=== PATIENT | female | born 1950 | race Caucasian/White ===

== ENCOUNTER → 2018-10-16 | Outpatient (CLI) | payer BC, OTHER ==
[~2018-10-16] VITALS: Ht 160 cm; Wt 72.6 kg
[~2018-10-16] MED LIST: ACCUPRIL10 MG PO; ASPIR 8181 M1 PO; ASPIRIN325 PO; EFFIENT10 MG PO; ESBRIET267 MG PO; ESBRIET801 MG PO; FISH OIL 1,001000 M2 PO; LIPITOR 20 MG T20 M1 PO; LIVALO2 MG PO; LOFIBRA160 MG PO; LOPRESSOR50 PO; OMEPRAZOLE20 M2 PO; QUINAPRIL HCL20 MG PO; REPATHA SU140 MG/1 M SUBQ; TOPROL XL25 MG PO; UNICOMPLEX M TA1 TA1 PO; VASCEPA1 GM PO; VITAMIN D1000 UNI1 PO; ZOLOFT50 MG PO
--- NOTE | ~2018-10-16 | CATHLAB ---
[facility] [place] [address] INVASIVE PROCEDURE REPORT Name: ISABELLE PACHECO Room #: REG CL [facility]#: [id number] Admission: 10/16/18 Attend Phys: Yahir Ruiz, Discharge: Date of : 54 Date of Service: 10/17/18 1508 Report #: [id number] THIS REPORT FOR: //name// APPROVED REPORT Study performed: 10/16/2018 07:36:51 Patient Details The patient is a 68 year-old female Event Personnel Yahir Ruiz Crew Leader Gluing, Sugar Corona RN RN, Jennifer Smiley Monitor, Dmitriy Cobos Scrub Procedures Performed Art Access - R femoral artery* Aman Access - R femoral vein 45041 Initial Mod Sed Same Phys/QHP Gr5y 817145 67762 Mod Sed Same Phys/QHP Ea 404288 Hemostasis w/ Mynx Hemostasis with Manual pressure Right and Left Heart Cath Lt Vent/Cors/Grafts 7881283 RLLVCORCAB Aortogram Abdominal Peripheral Angio 925520 Indication Chest pain Procedure Narrative The Right Groin^ was infiltrated with 1% Lidocaine subcutaneous anesthesia. A Right Heart Catheterization was performed with a 7 Fr. Crescent-Brock catheter and pressure were recorded. Cardiac outputs were obtained by the Thermal Dilution method. A PINNACLE 6FR Sheath #[id number] sheath was inserted into the RFA 6F^. Coronary angiography was performed using coronary diagnostic catheters. The right coronary system was accessed and visualized with a JR4 catheter. The left coronary system was accessed and visualized with a JL4 catheter. The left ventricle was accessed and visualized with a ANGLE PIG catheter. Left ventriculogram was performed in 30 degree projection. An aortogram of the abdominal aorta was performed. Hemostasis was obtained with manual pressure following sheath removal without any complications. The patient tolerated the procedure well and there were no complications associated with the procedure. CARDIAC OUTPUTS WERE INJECTED 2 TIMES WITH A 2.90 co - C.I. = 1.65 Intraoperative Conscious Sedation Fentanyl 25 mcg Versed 2 mg Fluoro Time: 4.[address] [facility] [address] [place] [address] INVASIVE PROCEDURE REPORT Name: PACHECOISABELLEMAXIMILIANO HERNANDEZ Room #: REG [facility]#: [id number] Admission: 10/16/18 Attend Phys: Yahir Ruiz, Discharge: Date of : 54 Date of Service: 10/17/18 1508 Report #: [id number] Dose: DAP 3555.10 cGycm2 405 mGy Contrast Type and Amount: Omnipaque 140 ml Hemodynamics The right atrial mean pressure is 12 mmHg. The right ventricular pressure is 41/9 mmHg. The pulmonary artery pressure is 44/6 mmHg with a mean of 24 mmHg. The mean pulmonary capillary wedge pressure is 14 mmHg. The aortic pressure is 148/68 mmHg with a mean of 98 mmHg. The left ventricular pressure is 150/10 mmHg with a mean of mmHg. The left ventricular end diastolic pressure is 25 mmHg. 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 Will follow noninvasively #3 left main mildly disease giving rise to an a circumflex which occludes at an LAD diagonal system #4 LAD diagonal small diffusely diseased 40-50% proximal and then extends to the apex. There is a very atraumatic DIETRICH partly competitively filling this vessel. The predominant flow is via the [place] system #5 [place] circumflex occluded #6 dominant right coronary artery previously placed proximal stents patent with a 50-60% stenosis proximal to this stent not flow limiting moderate disease distally and a large dominant system. #7 vein graft to OM branch is occluded. This is an interval change from the catheterization in 2016 Recommendations and plan: Continue aggressive risk factor modification. This was a small diffusely diseased OM system. On review of the old films. Minimal distribution. I suspect this graft is been occluded for some time. <ELECTRONICALLY SIGNED> By: Yahir Ruiz MD, FACC 10/17/18 1508 1508 1508 Yahir Ruiz MD, FACC /INF
[2018-10-16 07:17] VITALS: BP 156/68
[2018-10-16 07:29] LABS: HEMATOCRIT 38.4 % (37.0-47.0); HEMOGLOBIN 12.9 gm/dL (12.0-15.0); MCH 31.5 pg (26.0-34.0); MCHC 33.7 g/dL (28.0-37.0); MCV 93.4 fL (80.0-100.0); RBC 4.11 mil/uL (4.20-5.00); RDW 14.3 % (10.5-14.5); WBC 7.3 thou/uL (4.0-11.0)
[2018-10-16 07:39] LABS: CALCIUM 9.4 mg/dL (8.5-10.1); CREATININE 0.9 mg/dL (0.6-1.0); POTASSIUM 3.3 mmol/L (3.5-5.1)
== END | disposition home or self-care (01) ==
LOC: CATH 06:25
PROVIDERS: Internal Medicine Cardiovascular Disease
DX: I25.10 Atherosclerotic heart disease of native coronary artery without angina pectoris (principal); I71.4 Abdominal aortic aneurysm, without rupture; I10 Essential (primary) hypertension; I73.9 Peripheral vascular disease, unspecified; E78.5 Hyperlipidemia, unspecified; I25.2 Old myocardial infarction; J44.9 Chronic obstructive pulmonary disease, unspecified; F32.9 Major depressive disorder, single episode, unspecified; Z87.891 Personal history of nicotine dependence; Z95.1 Presence of aortocoronary bypass graft; Z82.49 Family history of ischemic heart disease and other diseases of the circulatory system; Z98.890 Other specified postprocedural states; Z88.2 Allergy status to sulfonamides; Z86.711 Personal history of pulmonary embolism; Z79.01 Long term (current) use of anticoagulants; Z88.8 Allergy status to other drugs, medicaments and biological substances; Z79.899 Other long term (current) drug therapy; Z79.82 Long term (current) use of aspirin

== ENCOUNTER → 2019-12-09 | Outpatient (CLI) | payer OTHER ==
[~2019-12-09] MED LIST changes: +OMEPRAZOLE 20 M20 M1 PO; +QUINU10 PD PO; +VITAMIN D31250 MCG PO; +XARELTO20 MG PO
== END ==
LOC: SJCVCIMAG 10:04 → SJCVC 14:49 → SJCVCIMAG 14:49
DX: I70.201 Unspecified atherosclerosis of native arteries of extremities, right leg (principal); I25.10 Atherosclerotic heart disease of native coronary artery without angina pectoris; I65.23 Occlusion and stenosis of bilateral carotid arteries; I10 Essential (primary) hypertension; E78.00 Pure hypercholesterolemia, unspecified; I73.9 Peripheral vascular disease, unspecified; J44.9 Chronic obstructive pulmonary disease, unspecified; Z95.1 Presence of aortocoronary bypass graft; Z95.820 Peripheral vascular angioplasty status with implants and grafts

== ENCOUNTER → 2019-12-15 | Outpatient (CLI) | payer OTHER ==
[~2019-12-15] VITALS: Ht 160 cm; Wt 70.4 kg
[~2019-12-15] MED LIST changes: -QUINU10 PD PO; -VITAMIN D31250 MCG PO
[2019-12-15 07:40] VITALS: BP 116/56
[2019-12-15 07:41] LABS: HEMATOCRIT 38.6 % (37.0-47.0); HEMOGLOBIN 12.7 gm/dL (12.0-15.0); MCH 32.1 pg (26.0-34.0); MCHC 32.9 g/dL (28.0-37.0); MCV 97.8 fL (80.0-100.0); RBC 3.95 mil/uL (4.20-5.00); RDW 14.7 % (10.5-14.5); WBC 10.2 thou/uL (4.0-11.0)
[2019-12-15 07:56] LABS: CALCIUM 9.1 mg/dL (8.5-10.1); CREATININE 1.1 mg/dL (0.6-1.0); POTASSIUM 3.9 mmol/L (3.5-5.1)
== END | disposition home or self-care (01) ==
LOC: CATH 06:27
PROVIDERS: Nuclear Medicine Nuclear Cardiology
DX: I70.212 Atherosclerosis of native arteries of extremities with intermittent claudication, left leg (principal); I70.1 Atherosclerosis of renal artery; K55.1 Chronic vascular disorders of intestine; I10 Essential (primary) hypertension; K21.9 Gastro-esophageal reflux disease without esophagitis; I25.10 Atherosclerotic heart disease of native coronary artery without angina pectoris; F32.9 Major depressive disorder, single episode, unspecified; Z98.890 Other specified postprocedural states; Z79.899 Other long term (current) drug therapy; Z95.1 Presence of aortocoronary bypass graft; Z90.710 Acquired absence of both cervix and uterus; Z82.49 Family history of ischemic heart disease and other diseases of the circulatory system; Z88.2 Allergy status to sulfonamides; Z88.8 Allergy status to other drugs, medicaments and biological substances

== ENCOUNTER → 2019-12-23 | Outpatient (CLI) | payer OTHER ==
[~2019-12-23] MED LIST changes: +QUINU10 PD PO; +VITAMIN D31250 MCG PO
== END ==
LOC: SJCVCIMAG 10:46
DX: I65.23 Occlusion and stenosis of bilateral carotid arteries (principal); I08.1 Rheumatic disorders of both mitral and tricuspid valves; R94.31 Abnormal electrocardiogram [ECG] [EKG]; I73.9 Peripheral vascular disease, unspecified; I25.10 Atherosclerotic heart disease of native coronary artery without angina pectoris; I10 Essential (primary) hypertension; J44.9 Chronic obstructive pulmonary disease, unspecified; E78.00 Pure hypercholesterolemia, unspecified; K21.9 Gastro-esophageal reflux disease without esophagitis; K55.1 Chronic vascular disorders of intestine; Z95.1 Presence of aortocoronary bypass graft; Z90.710 Acquired absence of both cervix and uterus; Z95.5 Presence of coronary angioplasty implant and graft; Z79.899 Other long term (current) drug therapy; Z87.891 Personal history of nicotine dependence

== ENCOUNTER 2019-12-26 11:11 | Observation (INO) | payer OTHER ==
[~2019-12-26] VITALS: Ht 160 cm; Wt 72.6 kg
[2019-12-26] VITALS (8 sets, daily range): BP systolic 115–170; BP diastolic 60–89
[~2019-12-26 11:11] MED LIST changes: -QUINU10 PD PO; -VITAMIN D31250 MCG PO
[2019-12-26] MEDS ORDERED: QUINU10 PD PO (12:14)
[2019-12-26] MEDS ORDERED: VITAMIN D31250 MCG PO (12:17)
--- NOTE | 2019-12-26 18:10 | NUR ---
PT CARE ASSUMED APPROX 1530 S/P RLE STENT PLACEMENT. DENIES PAIN AND SOA. VSS. BEDREST COMPLETED AT THIS TIME. LEFT GROIN POST CATH SITE C/D/I AND NEGATIVE FOR HEMATOMA. UP WITH STEADY GAIT. POST PROCEDURE IV INFUSION COMPLETED PER ORDERS. IV OUT, TELE BOX OFF. WILL ESCORT PT OUT TIMELY PER ORDERS.
== END 2019-12-26 18:35 | disposition home or self-care (01) ==
LOC: CATH 11:11 → 2N 15:39
PROVIDERS: ADMIT Nuclear Medicine Nuclear Cardiology
DX: I73.9 Peripheral vascular disease, unspecified (principal); I77.1 Stricture of artery

== ENCOUNTER 2020-04-19 08:46 | Inpatient (IN) | payer OTHER ==
[2020-04-19] VITALS (15 sets, daily range): BP systolic 93–196; BP diastolic 48–75
[~2020-04-19] VITALS: Ht 160 cm; Wt 68.9 kg
[~2020-04-19 08:46] MED LIST changes: -ACCUPRIL10 MG PER TUBE; -ASA81BEC PO; -INTERMEZZO3.5 MG; -OSTERA TABLET1 EAC1 PO; -PLAVIX 75 MG TA75 M1 PO; -QUINAPRIL 20 MG20 MG PO; -REPATHA PU420 MG/3.5
[2020-04-19 09:07] LABS: HEMATOCRIT 36.1 % (37.0-47.0); HEMOGLOBIN 12.1 gm/dL (12.0-15.0); MCH 32.2 pg (26.0-34.0); MCHC 33.4 g/dL (28.0-37.0); MCV 96.2 fL (80.0-100.0); RBC 3.75 mil/uL (4.20-5.00); RDW 14.9 % (10.5-14.5); WBC 9.3 thou/uL (4.0-11.0)
[2020-04-19 09:19] LABS: ALBUMIN 3.7 g/dL (3.4-5.0); CALCIUM 8.9 mg/dL (8.5-10.1); CREATININE 0.9 mg/dL (0.6-1.0); POTASSIUM 3.5 mmol/L (3.5-5.1); TOTAL BILIRUBIN 0.2 mg/dL (0.2-1.0)
[2020-04-19] MEDS ORDERED: ASA81BEC PO (09:52)
[2020-04-19] MEDS ORDERED: TOPROL XL25 MG PO (09:58)
[2020-04-19] MEDS ORDERED: INTERMEZZO3.5 MG (09:58)
[2020-04-19] MEDS ORDERED: QUINAPRIL 20 MG20 MG PO (09:59)
[2020-04-19] MEDS ORDERED: ACCUPRIL10 MG PER TUBE (10:00)
[2020-04-19] MEDS ORDERED: OSTERA TABLET1 EAC1 PO (10:00)
[2020-04-19] MEDS ORDERED: OMEPRAZOLE 20 M20 M1 PO (10:01)
--- NOTE | 2020-04-19 11:45 | EKG ---
[facility] [place] [address] ELECTROCARDIOGRAM REPORT Name: ISABELLE PACHECO Room #: PRE [facility].#: [id number] Admission: Attend Phys: Dmitriy Fulton MD Discharge: Date of : 54 Report #: [id number] THIS REPORT FOR: cc: FAM - Family physician unknown FAM - Family physician unknown Bradford Jordan MD ~ THIS REPORT FOR: //name// [facility] Test Date: 2020-04-19 Test Time: 09:05:23 Pat Name: ISABELLE PACHECO Department: Room: Gender: F Loan Supervisor: Rasheeda RODRIGUEZ : 1950 Requested By: Sarah Daugherty Order Number: [id number] MD: Bradford Jordan Measurements Intervals [place] Rate: 66 P: 23 LA: 155 QRS: 27 QRSD: 88 T: 33 QT: 425 QTc: 446 Interpretive Statements Sinus rhythm Minimal ST depression, anterolateral leads Compared to ECG 10/06/2017 09:04:31 ST (T wave) deviation now present T-wave abnormality no longer present Electronically Signed On 04-19-2020 11:43:09 CDT by Bradford Jordan [email or web address] <ELECTRONICALLY SIGNED> By: Bradford Jordan MD 04/19/20 1143 0905 4 Bradford Jordan MD /EPI
--- NOTE | 2020-04-19 17:53 | NUR ---
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 SHEATH RIGHT GROIN NOTED, VITALS STABLE. MEDICATED FOR PAIN WITH PRN MEDS. PEDAL PULSED DOPPLED AND ON THE LEFT FOOT ABLE TO DOPPLER ON AND OFF, WARM BLANKET PROVIDED FOR CRAMPING AND COMFORT. INTEGRILLIN AND tPA THROUGHT RIGHT GROIN SHEATH. ADMISSION HISTORY AND ASSESSMENT DOCUMENTED. VOIDING PER URINAL. PLAN: GO BACK FOR RE-EVAL TOMORROW.
[2020-04-20] VITALS (30 sets, daily range): BP systolic 94–145; BP diastolic 50–91
--- NOTE | 2020-04-20 06:37 | NUR ---
PATIENT ALERT AND ORIENTED X4, PAIN CONTROLLED WITH MEDICATION. ON 2L NASAL CANNULA, O2 SAT REMAINED ABOVE 90%. VOIDS PER BEDPAN. LEFT FOOT NOTED DECREASED PURPLE DISCOLORATION AND INCREASED LIGHT PINK. RIGHT GROIN SHEATH IN PLACE WITH TPA AND INTEGROLIN INFUSING. DRAINAGE NOTED TO DRESSING, NEGATIVE FOR HEMATOMA WITH FREQUENT HOURLY CHECKS. PLAN DISCUSSED WITH PATIENT, PATIENT VERBALIZED UNDERSTANDING. NO SIGN OF ACUTE DISTRESS NOTED AT THIS TIME. PATIENT PROGRESSING TOWARDS GOALS. WILL CONTINUE TO MONITOR.
--- NOTE | 2020-04-20 10:32 | NUR ---
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 noted per chart, independent. norm torres listed as contacted. will cont following as needed for dc needs.
--- NOTE | 2020-04-20 17:54 | NUR ---
BACK TO IR THIS MORNING AND STENT PLACED TO L POPLITEAL ARTERY. R GROIN SITE CLOSED WITH MYNX. NO HEMATOMA OR BLEEDING AT SITE. BEDREST OVER AT 1300. OOB TO BATHROOM WITHOUT DIFFICULTY. L DP +1, R DP +2
--- NOTE | 2020-04-20 22:13 | NUR ---
Pt progressing toward goals: left foot warm and dry with palpable pulse. Monitor sinus rhythm with occasional PAC's. VS stable. Pt was running fever at 2000 check. Encouraged oral intake and hydrocodone given for left foot pain. Eyes feel much better after liquid tears.
--- NOTE | 2020-04-20 22:45 | NUR ---
PT IS ALERT AND ORIENTED X4. ON 2L LITERS NASAL CANULA. UP TO BATHROOM WITH MINIMAL ASSISTANCE PER NURSING. LUNGS ARE COARSE TO WHEEZY. PT HAS PULMONARY FIBROSIS. HAS A MASK ON INFORMS STAFF OF HER DISEASE. ABDOMEN IS SOFT AND ROUND BOWEL SOUNDS ACTIVE X4. DRESSING TO RIGHT GROIN DRY AND INTACT. RADIAL PULSES 2 PLUS BILAT. PEDAL ON RIGHT IS 2 PLUS AND THEN 1 PLUS ON THE LEFT. LEFT HAS 2CM CIRCULAR AREA DUSKINESS BELOW GREAT TOE BUT LEFT FOOT REAMINS WARM AND PINK TO SENSATION. ARTIFICAL TEARS FOR RED, DRY EYES. WILL CONTINUE NURSING PLAN OF CARE
[2020-04-21 02:30] VITALS: BP 121/40
[2020-04-21 04:00] VITALS: BP 123/61
[2020-04-21] MEDS ORDERED: PLAVIX 75 MG TA75 M1 PO (07:29)
[2020-04-21 09:11] VITALS: BP 119/70
[2020-04-21 12:18] VITALS: BP 96/56
[2020-04-21 12:51] VITALS: BP 96/56
--- NOTE | 2020-04-21 13:00 | NUR ---
ASSUMED CARE APPROX 0700. ASSESSMENTS CHARTED AND VSS. PT ALERT AND ORIENTED X4. PT DENIES ACUTE PAIN. STILL REQUIRING 2LNC AT THIS TIME, BUT THIS IS HER BASELINE AT HOME. NO SIGNS OF RESPIRATORY DISTRESS OR DYSPNEA NOTED. DISCHARGE PACKET/INSTRUCTIONS DISCUSSED WITH PT. TELE MONITOR REMOVED FROM PT AND IV D/C'D. PT DENIES ANY QUESTIONS OR CONCERNS REGARDING DISCHARGE INFORMATION. PT ESCORTED OUT TIMELY.
[2020-04-26] MEDS ORDERED: REPATHA PU420 MG/3.5 (10:21)
[2020-04-26] MEDS ORDERED: VASCEPA1 GM PO (10:22)
[2020-04-26] MEDS ORDERED: ESBRIET801 MG PO (10:22)
== END 2020-04-21 14:20 | disposition home or self-care (01) | DRG 253 ==
LOC: CATH 08:46 → EDSTATUS 10:19 → CATH 10:24 → 2N 14:25 → ICU 14:25 → CATH 15:45 → ICU 04-20 22:23 → 2N 04-20 22:23
PROVIDERS: Nurse Practitioner Adult Health; ADMIT Nuclear Medicine Nuclear Cardiology
PROC: B4181ZZ Fluoroscopy of Bilateral Renal Arteries using Low Osmolar Contrast (ICD-10-PCS; principal; 2020-04-19)
PROC: B41D1ZZ Fluoroscopy of Aorta and Bilateral Lower Extremity Arteries using Low Osmolar Contrast (ICD-10-PCS; principal; 2020-04-19)
PROC: 3E05317 Introduction of Other Thrombolytic into Peripheral Artery, Percutaneous Approach (ICD-10-PCS; principal; 2020-04-19)
PROC: 047T3ZZ Dilation of Right Peroneal Artery, Percutaneous Approach (ICD-10-PCS; principal; 2020-04-19)
PROC: 04HJ3DZ Insertion of Intraluminal Device into Left External Iliac Artery, Percutaneous Approach (ICD-10-PCS; principal; 2020-04-19)
PROC: 04HL3DZ Insertion of Intraluminal Device into Left Femoral Artery, Percutaneous Approach (ICD-10-PCS; 2020-04-20)
PROC: 047N3ZZ Dilation of Left Popliteal Artery, Percutaneous Approach (ICD-10-PCS; 2020-04-20)
PROC: 3E05317 Introduction of Other Thrombolytic into Peripheral Artery, Percutaneous Approach (ICD-10-PCS; 2020-04-20)
DX: T82.856A Stenosis of peripheral vascular stent, initial encounter (principal); K55.1 Chronic vascular disorders of intestine; I70.202 Unspecified atherosclerosis of native arteries of extremities, left leg; I25.10 Atherosclerotic heart disease of native coronary artery without angina pectoris; I10 Essential (primary) hypertension; K21.0 Gastro-esophageal reflux disease with esophagitis; F32.9 Major depressive disorder, single episode, unspecified; E78.00 Pure hypercholesterolemia, unspecified; J44.9 Chronic obstructive pulmonary disease, unspecified; J84.10 Pulmonary fibrosis, unspecified; Y83.8 Other surgical procedures as the cause of abnormal reaction of the patient, or of later complication, without mention of misadventure at the time of the procedure; Z88.2 Allergy status to sulfonamides; Z95.1 Presence of aortocoronary bypass graft; Z88.8 Allergy status to other drugs, medicaments and biological substances; Z79.01 Long term (current) use of anticoagulants; Z79.82 Long term (current) use of aspirin; Z90.710 Acquired absence of both cervix and uterus; Z87.891 Personal history of nicotine dependence; Y92.89 Other specified places as the place of occurrence of the external cause
CPT/HCPCS: 10078; 10081; 10203

== ENCOUNTER → 2020-04-19 | Outpatient (CLI) | payer OTHER ==
[~2020-04-19] MED LIST changes: +ACCUPRIL10 MG PER TUBE; +ASA81BEC PO; +INTERMEZZO3.5 MG; +OSTERA TABLET1 EAC1 PO; +PLAVIX 75 MG TA75 M1 PO; +QUINAPRIL 20 MG20 MG PO; +QUINU10 PD PO; +REPATHA PU420 MG/3.5; +VITAMIN D31250 MCG PO
== END ==
LOC: SJCVCIMAG 07:22
PROVIDERS: ATTEND Nuclear Medicine Nuclear Cardiology
DX: I70.202 Unspecified atherosclerosis of native arteries of extremities, left leg (principal); Z87.891 Personal history of nicotine dependence

== ENCOUNTER → 2020-04-26 | Outpatient (CLI) | payer OTHER ==
[2020-04-26] VITALS (9 sets, daily range): BP systolic 112–169; BP diastolic 50–78
[~2020-04-26] VITALS: Ht 160 cm; Wt 68.9 kg
[~2020-04-26] MED LIST changes: +ACCUPRIL10 MG PER TUBE; +ASA81BEC PO; +INTERMEZZO3.5 MG; +OSTERA TABLET1 EAC1 PO; +PLAVIX 75 MG TA75 M1 PO; +QUINAPRIL 20 MG20 MG PO; +REPATHA PU420 MG/3.5
== END | disposition home or self-care (01) ==
LOC: CATH 07:49
PROVIDERS: ATTEND Nuclear Medicine Nuclear Cardiology
DX: I70.213 Atherosclerosis of native arteries of extremities with intermittent claudication, bilateral legs (principal); I10 Essential (primary) hypertension; I25.10 Atherosclerotic heart disease of native coronary artery without angina pectoris; F32.9 Major depressive disorder, single episode, unspecified; K21.9 Gastro-esophageal reflux disease without esophagitis; Z98.890 Other specified postprocedural states; Z90.710 Acquired absence of both cervix and uterus; Z95.1 Presence of aortocoronary bypass graft; Z79.899 Other long term (current) drug therapy; Z79.82 Long term (current) use of aspirin; Z87.891 Personal history of nicotine dependence; Z82.49 Family history of ischemic heart disease and other diseases of the circulatory system

== ENCOUNTER → 2020-05-25 | Outpatient (CLI) | payer OTHER | LOC: SJCVCIMAG 10:16 | PROVIDERS: ATTEND Nuclear Medicine Nuclear Cardiology | DX: I70.203 Unspecified atherosclerosis of native arteries of extremities, bilateral legs (principal); I10 Essential (primary) hypertension; K55.1 Chronic vascular disorders of intestine; J44.9 Chronic obstructive pulmonary disease, unspecified; E78.00 Pure hypercholesterolemia, unspecified; K21.9 Gastro-esophageal reflux disease without esophagitis; I25.810 Atherosclerosis of coronary artery bypass graft(s) without angina pectoris; Z79.899 Other long term (current) drug therapy; Z95.820 Peripheral vascular angioplasty status with implants and grafts; Z95.1 Presence of aortocoronary bypass graft; Z82.49 Family history of ischemic heart disease and other diseases of the circulatory system; Z87.891 Personal history of nicotine dependence; Z79.82 Long term (current) use of aspirin ==

== ENCOUNTER → 2020-06-25 | Outpatient (CLI) | payer OTHER | LOC: SJCVC 14:00 | PROVIDERS: ATTEND Internal Medicine Cardiovascular Disease | DX: I25.10 Atherosclerotic heart disease of native coronary artery without angina pectoris (principal); I10 Essential (primary) hypertension; I73.9 Peripheral vascular disease, unspecified; E78.00 Pure hypercholesterolemia, unspecified; E78.1 Pure hyperglyceridemia; I65.23 Occlusion and stenosis of bilateral carotid arteries; K55.1 Chronic vascular disorders of intestine; J44.9 Chronic obstructive pulmonary disease, unspecified ==

== ENCOUNTER → 2020-09-07 | Outpatient (CLI) | payer OTHER | LOC: SJCVCIMAG 09:07 | PROVIDERS: ATTEND Nuclear Medicine Nuclear Cardiology | DX: I08.8 Other rheumatic multiple valve diseases (principal); I49.1 Atrial premature depolarization; I70.202 Unspecified atherosclerosis of native arteries of extremities, left leg; I11.9 Hypertensive heart disease without heart failure; K55.1 Chronic vascular disorders of intestine; I77.9 Disorder of arteries and arterioles, unspecified; I25.10 Atherosclerotic heart disease of native coronary artery without angina pectoris; J44.9 Chronic obstructive pulmonary disease, unspecified; Z95.1 Presence of aortocoronary bypass graft; Z95.828 Presence of other vascular implants and grafts; Z98.890 Other specified postprocedural states; Z87.891 Personal history of nicotine dependence ==

== ENCOUNTER → 2020-11-24 | Outpatient (CLI) | payer OTHER | LOC: SJCVCIMAG 14:35 | PROVIDERS: ATTEND Internal Medicine Cardiovascular Disease | DX: I08.3 Combined rheumatic disorders of mitral, aortic and tricuspid valves (principal); R94.31 Abnormal electrocardiogram [ECG] [EKG]; I49.1 Atrial premature depolarization; I25.10 Atherosclerotic heart disease of native coronary artery without angina pectoris; I11.0 Hypertensive heart disease with heart failure; I50.9 Heart failure, unspecified; K55.1 Chronic vascular disorders of intestine; J44.9 Chronic obstructive pulmonary disease, unspecified; I77.9 Disorder of arteries and arterioles, unspecified; I73.9 Peripheral vascular disease, unspecified; D50.9 Iron deficiency anemia, unspecified; E78.00 Pure hypercholesterolemia, unspecified; D68.59 Other primary thrombophilia; K21.9 Gastro-esophageal reflux disease without esophagitis; Z78.9 Other specified health status; Z95.1 Presence of aortocoronary bypass graft; Z79.82 Long term (current) use of aspirin; Z79.899 Other long term (current) drug therapy; Z87.891 Personal history of nicotine dependence ==

== ENCOUNTER 2020-12-21 00:05 | Inpatient (IN) | payer OTHER ==
[~2020-12-21] VITALS: Ht 160 cm; Wt 64.0 kg
[2020-12-21] VITALS (30 sets, daily range): BP systolic 96–169; BP diastolic 45–81
[2020-12-21] MEDS ORDERED: TOPROL XL25 MG PO (00:22)
[2020-12-21] MEDS ORDERED: ESBRIET801 MG PO (00:24)
[2020-12-21] MEDS ORDERED: VASCEPA1 GM PO (00:25)
[2020-12-21] MEDS ORDERED: VITAMIN D310 MC1 PO ×2 (00:27)
[2020-12-21] MEDS ORDERED: REPATHA SY140 MG/1 M SUBQ ×2 (00:28)
[2020-12-21 00:34] LABS: ABSOLUTE NEUTROPHILS 7.7 thou/uL (1.4-8.2); BASOPHILS 0.3 % (0.0-2.0); EOSINOPHILS 1.5 % (0.0-3.0); HEMATOCRIT 30.4 % (37.0-47.0); HEMOGLOBIN 9.4 gm/dL (12.0-15.0); LYMPHOCYTES 17.7 % (24.0-44.0); MCH 25.9 pg (26.0-34.0); MCV 83.5 fL (80.0-100.0); MONOCYTES 4.9 % (1.0-8.0); PLATELET COUNT 424 thou/uL (150-400); POLYS 75.6 % (36.0-66.0); RBC 3.64 mil/uL (4.20-5.00); RDW 19.6 % (10.5-14.5); WBC 10.2 thou/uL (4.0-11.0)
[2020-12-21 00:35] LABS: CALCIUM 9.1 mg/dL (8.5-10.1); CREATININE 1.3 mg/dL (0.6-1.0); POTASSIUM 3.7 mmol/L (3.5-5.1)
[2020-12-21 00:37] LABS: INR 1.4; PROTIME 13.9 Seconds (9.3-11.4)
[2020-12-21 00:41] LABS: ALBUMIN 4.1 g/dL (3.4-5.0); TOTAL BILIRUBIN 0.3 mg/dL (0.2-1.0); TOTAL PROTEIN 8.3 g/dL (6.4-8.2)
--- NOTE | 2020-12-21 04:10 | NUR ---
PT NEW ADMIT FROM ED FOR LLE PAIN. PT ALERT AND ORIENTED. O ARRIVAL, PT WAS RATING PAIN AT 10/10. MORPHINE PRN GIVEN. PT WAS STARTED ON HEPARIN DRIP FOR DVT. KEPT NPO FOR IR CONSULT THIS MORNING. ADMISSION COMPLETED. CONSENT FORMS SIGNED. DENIES CHEST PAIN, NAUSEA, OR VOMITING. SR ON THE MONITOR. WILL CONTINUE TO MONITOR
--- NOTE | 2020-12-21 15:00 | NUR ---
PT TRANSFERRED FROM IR TO ICU AT 1330 ACCOMPANIED BY NURSING STAFF. PT ALERT AND ORIENTED X4. PT HAS ARTERIAL SHEATH AT THE RIGHT GROIN SITE WITH TWO PORTS FOR INTEGRILIN AT 0.962MCH/KG/MIN AND ALTEPLASE AT 25ML/HR. PT RIGHT GROIN SITE LOOKS CLEAN/DRY/INTACT ON ARRIVAL. NO HEMATOMA. PULSES ARE WEAK BUT PALPABLE AT BOTH LOWER EXTREMITIES. NO COMPLAIN OF PAIN OR NUMBNESS.PT ON 2L NC. PT WEARS 2L NC AT HOME.CONTINUE TO MONITOR.
--- NOTE | 2020-12-21 17:47 | CATHLAB ---
[facility] [place] [address] INVASIVE PROCEDURE REPORT Name: ISABELLE PACHECO Room #: 240-P ADM IN M.R.#: [id number] Admission: 12/21/20 Attend Phys: Poncho Coy MD Discharge: Date of : 54 Report #: [id number] THIS REPORT FOR: cc: MARIAELENA YING MD Physician not on staff Yahir Ruiz MD [facility] ~ APPROVED REPORT Study performed: 12/21/2020 11:09:21 Patient Details Patient Status: In-Patient Room #: The patient is a 70 year-old female Event Personnel Dmitriy Fulton Interventional Radiologist, Yahir Ruiz Lay Health Advocate, Kai Krishna RTR Scrub, Mouna Sarabia RTR Monitor, Delmi Delgado RN RN, Shameka Silva RTR Tire Maker, Valerio Parra RTR Monitor, Angela Hall RTR, MEDICAL SERVICES MANAGER Tire Maker Procedures Performed Art Access - R femoral artery* Left Heart Cath Coronaries, Bypass Grafts [id number] LHCCORCABG SORAYA Place w/wo Plasty Single RCA 995930 61096 Initial Mod Sed Same Phys/QHP Gr5y 108867 33501 Mod Sed Same Phys/QHP Ea 902598 Procedure Narrative The was infiltrated with 1% Lidocaine subcutaneous anesthesia. A SHEATH BRITE-TIP 6F X 11CM ([id number]) sheath was inserted into the RFA^. Coronary angiography was performed using coronary diagnostic catheters. The right coronary system was accessed and visualized with a JR4 catheter. The left coronary system was accessed and visualized with a JL4 catheter. The left ventricle was accessed and visualized with a PIGTAIL catheter. Left ventriculogram was performed in 30 degree projection. The patient tolerated the procedure well and there were no complications associated with the procedure. Intraoperative Conscious Sedation Sedation start time: 11:35 Case end Time: 13:07 Fentanyl 200 mcg Versed 2 mg Sedation time and totals and contrast totals are a combination of a heart cath procedure and a runoff procedure. [facility] [address] [place] [address] INVASIVE PROCEDURE REPORT Name: ISABELLE PACHECO Room #: 240-P [facility] IN .R.#: [id number] Admission: 12/21/20 Attend Phys: Poncho Coy MD Discharge: Date of : 54 Report #: [id number] Fluoro Time: 13.24 minutes Dose: DAP 15252.80 cGycm2 1064 mGy Contrast Type and Amount: Visipaque 228 ml Hemodynamics The aortic pressure is 121/50 mmHg with a mean of 78 mmHg. The left ventricular pressure is 121/0 mmHg with a mean of mmHg. The left ventricular end diastolic pressure is 19 mmHg. PCI Technique Lesion Percutaneous coronary intervention was performed on the proximal right coronary artery. A LAUNCHER 6FR JR 4 #[id number] Guide Catheter was used to engage the ostium. A Luge Wire .014 x 182CM #[id number] Interventional Guidewire was used to cross the lesion. STENT DEPLOYMENT A drug-eluting stent RESOLUTE RAISA OTW 4.0 X 12 #[id number] was inserted and inflated up to 12.00atm for 44seconds. Additional Inflation: 16.00atm for 21seconds. Conclusion #1. Successful PTCA stent of a high-grade proximal dominant RCA lesion 80 to 90% to 0% with placement of a 4.0 x 12 resolute Hosmer stent postdilated to 4.2 mm MERNA grade III flow. This stent extended into a previously placed stent that was widely patent. Dominant vessel. #2 mild left main disease giving rise to LAD and circumflex. #3 the LAD is moderately diseased and occludes in the mid vessel. It is filled via DIETRICH graft which is somewhat small but brisk flow and widely patent. The proximal diagonal system is filled via the [place] system. #4 DIETRICH to LAD is intact some competitive filling of the distal half of this LAD it is moderately attenuated but brisk flow is noted through this DIETRICH so still a functioning graft. In filling the distal half of the LAD briskly. #5 circumflex OM is small nondominant were occluded was not never a significant distribution. #6 SVG to OM is occluded #7 normal left ventricular size and systolic function EF 60%. Recommendations and plan: Continue aggressive risk factor modification. Dual antiplatelet therapy initiated. Patient also undergoing thrombolysis for SFA occlusion. See Dr. Fulton's [address] [address] INVASIVE PROCEDURE REPORT Name: ISABELLE PACHECO Room #: 240-P [facility] IN M.R.#: [id number] Admission: 12/21/20 Attend Phys: Poncho Coy MD Discharge: Date of : 54 Report #: [id number] dictation. This is a subacute occlusion. With a symptomatic left foot <ELECTRONICALLY SIGNED> By: Yahir Ruiz MD, FACC 12/21/201746 46 46 Yahir Ruiz MD, FACC /INF
[2020-12-22] VITALS (53 sets, daily range): BP systolic 72–171; BP diastolic 38–96
--- NOTE | 2020-12-22 00:29 | NUR ---
PT ON BEDREST S/P CARDIAC MARU AND ANGIOGRAM.REMAINS ON TPA AND INTERGLLIN INFUSION.RIGHT GROIN W/O HEMATOMA OR ACTIVE BLEEDING.A/OX4.DENIES PAIN.PT TACHYCARDIAC WITH PERIODS OF HR BOUNCING IN 120S AND 130S BPM ACCOMPANIED BY SHORTNESS OF BREATH WHEN HR IS IN 130S.ON MONITOR SINUS TACHYCARDIA W/PVCS.PT DENIES CHEST PAIN OR ANY OTHER DISTRESS.ON O2 AT 2LITERS PNC,SATS ADEQUATE.SBP RANGING BTWN 140S TO I60S.VOIDING ADEQUATELY VIA BEDPAN.DR MANSFIELD NOTIFIED AND UPDATED ON PT'S STATUS.INSTRUCTED TO CONTINUE TO MONITOR.NO OTHER CONCERNS VOICED OR NOTED.
[2020-12-22 05:43] LABS: ANION GAP 9 mmol/L (7-16); BUN 15 mg/dL (7-18); CALCIUM 8.8 mg/dL (8.5-10.1); CHLORIDE 105 mmol/L (98-107); CO2 26 mmol/L (21-32); CREATININE 1.2 mg/dL (0.6-1.0); GLUCOSE 124 mg/dL (74-106); SODIUM 140 mmol/L (136-145); TROPONIN-I <0.06 ng/mL (<0.06)
[2020-12-22 07:10] LABS: HEMATOCRIT 25.1 % (37.0-47.0); MCH 26.1 pg (26.0-34.0); MCHC 31.7 g/dL (28.0-37.0); MCV 82.2 fL (80.0-100.0); RBC 3.05 mil/uL (4.20-5.00); RDW 19.4 % (10.5-14.5); WBC 7.8 thou/uL (4.0-11.0)
--- NOTE | 2020-12-22 07:20 | NUR ---
PT RESTING IN NO ACUTE DISTRESS.S/p CARDIAC MARU.REMAINS ON BEDREST.TPA AND INTERGLIN DRIP INFUSING.ON ASSESSMENT TO RIGHT GROIN THIS AM NOTED DRESSING WET WITH BLOODY DRAINAGE AND A HEMATOMA NOTED.PRESSURE APPLIED,HEMATOMA NOW SOFT.NOTED RIGHT ARM BRUISING AND PETECHIE.BLOOD PRESSURE CUFF REMOVED.PT ABLE TO MOVE THE EXTREMITY W/O DIFFICULTIES.DENIES PAIN.PERIPHERAL PULSES PRESENT + radial bilaterally.pedal pulse,2+ to right and 1+ to left.bilateral feet warm to to touch and cool to touch to toes.pt medicated with pain meds x1 forthe c/o leg pain with relief.no numbness or tingling or color change to lower extremities.pt denies any other concerns.poc is to go to ir procedure today.
--- NOTE | 2020-12-22 07:27 | EKG ---
[place] [address] [facility] [place] [address] ELECTROCARDIOGRAM REPORT Name: ISABELLE PACHECO Room #: 240-P ADM IN M.R.#: [id number] Admission: 12/21/20 Attend Phys: Candice Romo Discharge: Date of : 54 Report #: [id number] [facility] Test Date: 2020-12-22 Test Time: 07:11:24 Pat Name: ISABELLE PACHECO Department: Room: 240 P Gender: F Tow Driver: JAKOB : 1950 Requested By: Sarah Daugherty Order Number: [id number] MD: Blas Rivera Measurements Intervals [place] Rate: 90 P: 31 DE: 136 QRS: 30 QRSD: 91 T: 61 QT: 371 QTc: 454 Interpretive Statements Sinus rhythm Atrial premature complexes Probable left ventricular hypertrophy Compared to ECG 04/19/2020 09:05:23 Atrial premature complex(es) now present ST (T wave) deviation no longer present Electronically Signed On 12-22-2020 7:27:42 OBSTETRICS TEACHER by Blas Rivera [email or web address] <ELECTRONICALLY SIGNED> By: Blas Rivera MD, [facility] 12/22/20726 0 0 Blas Rivera MD, [facility] /EPI
[2020-12-22 08:08] LABS: HEMATOCRIT 25.7 % (37.0-47.0); MCH 25.6 pg (26.0-34.0); WBC 7.8 thou/uL (4.0-11.0)
[2020-12-22 08:09] LABS: HEMOGLOBIN 7.9 gm/dL (12.0-15.0); MCHC 30.9 g/dL (28.0-37.0); RBC 3.1 mil/uL (4.20-5.00); RDW 19.7 % (10.5-14.5)
[2020-12-22 08:35] LABS: CALCIUM 8.8 mg/dL (8.5-10.1); CREATININE 1.3 mg/dL (0.6-1.0); POTASSIUM 3.9 mmol/L (3.5-5.1)
[2020-12-22 12:42] LABS: HEMOGLOBIN 6.7 gm/dL (12.0-15.0); WBC 7.2 thou/uL (4.0-11.0)
[2020-12-22 12:45] LABS: ABSOLUTE RETIC COUNT 0.0423 10^6/uL; HEMATOCRIT 21.2 % (37.0-47.0); MCHC 31.6 g/dL (28.0-37.0); MCV 82.3 fL (80.0-100.0); OBSERVED RETIC COUNT 1.64 % (0.6-2.6); RBC 2.58 mil/uL (4.20-5.00); RDW 19.2 % (10.5-14.5)
[2020-12-22 12:53] LABS: % SATURATION 80 % (20-39); IRON 252 ug/dL (50-170); TIBC 315 ug/dL (250-450)
[2020-12-22 12:54] LABS: INR 1.4; PROTIME 14.7 Seconds (9.3-11.4)
[2020-12-22 12:58] LABS: CALCIUM 8.4 mg/dL (8.5-10.1); CREATININE 1.1 mg/dL (0.6-1.0); POTASSIUM 3.5 mmol/L (3.5-5.1); TOTAL BILIRUBIN 0.4 mg/dL (0.2-1.0); TOTAL PROTEIN 6.2 g/dL (6.4-8.2)
[2020-12-22 13:22] LABS: FOLIC ACID 19.2 ng/mL (8.6-58.9)
--- NOTE | 2020-12-22 15:23 | NUR ---
PT IN AFIB RVR. DR. DINERO NOTIFIED. ONE TIME 5MG IV LOPRESSOR, AMIO BOLUS AND DRIP PROTOCOL ORDERED PER DR DINERO PT HYPOTENSIVE 90-107/43-[address] DINERO OF HYPOTENSION, RN TO STILL GIVE MEDS ORDERED BY DR DINERO
--- NOTE | 2020-12-22 16:15 | NUR ---
PT ADMITTED RELATED TO CLAUDICATION OF L LOWER EXTREMITY. CM REVIEWED CHART AND SPOKE WITH CARE TEAM. CM CALLED AND SPOKE WITH PT'S SON KOFI PACHECO THIS DAY. HE INDICATED THAT HIS MOM RESIDES IN A HOUSE ALONE. HE INDICATED 3 STEPS TO ENTER AND NO STEPS INSIDE. 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 PT'S LISTED PCP IS DR. ROCIO YING. CARDIOLOGY AND HEMETOLOGY CONSULTED AND FOLLOWING PT. PT HAD ANGIOGRAM WITH INTERVENTION DONE THIS DAY. CM TO FOLLOW INDICATED WITH DC PLANNING.
--- NOTE | 2020-12-22 19:12 | NUR ---
PT PROGRESSING TOWARDS GOALS. CATH AND ANGIO SUCCESSFULL. NEW AFIB RVR CONTROLED WITH AMIODARONE DRIP
[2020-12-22 21:06] LABS: HEMATOLOGY COMMENTS Note: (()); HEMOGLOBIN 6.7 g/dL (11.1-15.9)
[2020-12-23] VITALS (74 sets, daily range): BP systolic 80–192; BP diastolic 28–117
[2020-12-23 04:54] LABS: CALCIUM 8.6 mg/dL (8.5-10.1); CREATININE 1.5 mg/dL (0.6-1.0); POTASSIUM 3.7 mmol/L (3.5-5.1)
[2020-12-23 05:34] LABS: HEMATOCRIT 30.6 % (37.0-47.0); MCH 27.2 pg (26.0-34.0); MCHC 32.8 g/dL (28.0-37.0); MCV 82.7 fL (80.0-100.0); RBC 3.7 mil/uL (4.20-5.00); RDW 17.5 % (10.5-14.5); WBC 10.7 thou/uL (4.0-11.0)
[2020-12-23 05:53] LABS: HEMOGLOBIN 10.1 gm/dL (12.0-15.0)
--- NOTE | 2020-12-23 06:34 | NUR ---
PATIENT CONVERTED BACK TO SINUS RHYTHM AROUND 0330 THIS AM. COMPLAINTS OF N/V. PROJECTILE VOMITING X1 AT 0608. ASSISTED BACK TO BED FROM BEDSIDE COMMODE. ZOFRAN 4MG IVP GIVEN. PATIENT STATES FEELING BETTER. SBP 140-170s OVER NIGHT. BETTER WHEN SLEEPING. RIGHT GROIN DRESSING SITE INTACT. NO HEMATOMA, NO BLEEDING, PT DENIES PAIN.
--- NOTE | 2020-12-23 19:12 | NUR ---
PATIENT STARTED ON ARGATRABAN GTT AND PROTONIX GTT. PATIENT IN CONTROLLED AFIB WITH SOME NSR PERIODICALLY.
[2020-12-24] VITALS (66 sets, daily range): BP systolic 85–145; BP diastolic 31–82
[2020-12-24 05:31] LABS: HEMATOCRIT 27.2 % (37.0-47.0); HEMOGLOBIN 8.8 gm/dL (12.0-15.0); MCH 27.1 pg (26.0-34.0); MCHC 32.5 g/dL (28.0-37.0); MCV 83.4 fL (80.0-100.0); RBC 3.27 mil/uL (4.20-5.00); RDW 17.6 % (10.5-14.5); WBC 10.3 thou/uL (4.0-11.0)
--- NOTE | 2020-12-24 07:32 | HC ---
[facility] [place] [address] CONSULTATION Name: ISABELLE PACHECO Room #: 240-P ADM IN M.R.#: [id number] Admission: 12/21/20 Attend Phys: Candice Romo Discharge: Date of : 54 Report #: [id number] THIS REPORT FOR: cc: MARIAELENA YING MD Physician not on staff Moises Parker MD ~ CONSULT REQUESTED BY: Dr. Yahir Ruiz REASON FOR CONSULTATION: Thrombocytopenia. HISTORY OF PRESENT ILLNESS: The patient is a 70-year-old female who was admitted for a cold foot and ended up having a thrombectomy and also a stent placement. Her platelets prior to the procedure about 400,000, the day afterwards were down to 16,000. The patient had been receiving Integrilin and heparin for about a day and a half to 2 days at that time. She had both agents before without difficulties. The patient reports no past history of blood disorder. She does have a history of I think 2 previous episodes of arterial clot formation with removal. At this time, she does have a headache. She denies fevers or chills. Did have some nausea earlier, feels better after emesis. No blood in urine or stool. No black tarry stool. She has not been on iron before. No dysuria. Does have some shortness of air related to her pulmonary fibrosis. 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 FAMILY HISTORY: No one with blood disorders that she reports. Remainder of family history appears unremarkable. SOCIAL HISTORY: Retired, lives at home. Has a black cat that she calls little big man. No alcohol recently. CURRENT MEDICATIONS: Include sucralfate that I added this morning, amiodarone 400 mg daily, amlodipine 5 daily, metoprolol 50 daily, sertraline 50 daily, famotidine 10 b.i.d., atorvastatin 40 at bedtime, albuterol respiratory therapy, Zofran p.r.n., iron sucrose to begin today, Zofran p.r.n., hydrocodone p.r.n., clopidogrel I believe it is currently on hold. LABORATORY DATA: As mentioned above was notable for recent creatinine of 1.5, [facility] [address] [place] [address] CONSULTATION Name: ISABELLE PACHECO Room #: 240-P [facility] IN M.R.#: [id number] Admission: 12/21/20 Attend Phys: Candice Romo Discharge: Date of : 54 Report #: [id number] which is near baseline for her. Liver functions normal. Iron recently was 252, percent saturation 80%, TIBC 315. At [facility], they had recently been consistent with iron deficiency. INR here on admission was 1.4, the protime of 13.9. White count on admission 10.2, hemoglobin on admission 9.4, MCV on admission 83.5, platelets on admission had been 424. She underwent the procedure on 12/21 and then the morning of 12/22, her platelets were 20,000 and repeat 16,000. After platelet transfusion yesterday, they were up to 80,000, then this morning they are 67,000. Absolute retic count inappropriately low at 0.0423. Note that immature platelet fraction is pending. Heparin antibody is pending. Ferritin was 87. Folate 19.2. Vitamin B12 299. COVID negative. Recent imaging had the angiograms for thrombolysis. PHYSICAL EXAMINATION: VITAL SIGNS: The patient's height is described as 5 feet 3 inches, 160 cm; weight 143.2 pounds or 64.95 kilograms. Recent blood pressure 182/77, pulse 80, respirations 19, temperature oral 99.0. MOOD: The patient is alert and anxious and conversant. NEUROLOGIC: Speech and thought pattern appear to be normal. She is moving upper extremities. Lower extremity is not moving much, just because she has not been watching her, though she can. LYMPHATICS: No enlarged lymph nodes in the supraclavicular, cervical, axillary or inguinal region. HEENT: Oropharynx without petechiae, leukoplakia, or ulcerations. HEART: ____ regular rate, ____ understand she is in atrial fibrillation. LUNGS: Symmetric, unlabored without rhonchi or wheezes. ABDOMEN: Slightly obese. No masses. Mildly discomfort in the epigastric region, lower abdomen and suprapubic area, nonspecific changes. EXTREMITIES: Without clubbing or cyanosis. SKIN: Notable for several small ecchymoses in different locations and also related to lab draw. ASSESSMENT AND PLAN: 1. Thrombocytopenia. Given the sudden drop, would wonder about Integrilin. Platelets are now improved after transfusion with slight drop. The patient unfortunately is a very delicate balance risk of bleeding with her iron deficiency from unknown source though not acute or a sudden drop versus recurrence of her arterial clot versus clotting off of her cardiac stent. Discussed with cardiac nurse practitioner and also nurse with the patient. We think it might be the safest bet to go with argatroban without a bolus and watch her platelets and wait for the heparin-induced thrombocytopenia antibody. It is possible this is heparin-induced thrombocytopenia, but does not seem real likely. I have also asked the PharmD to see if they can check to see whether future use of Integrilin is now contraindicated or there are other agents we could use. The patient had been off aspirin. So, the question is also raised did her clot occur because of being off the aspirin or she failed Xarelto, we [facility] [address] [place] [address] CONSULTATION Name: TARAISABELLEMAXIMILIANO BHATTE Room #: 240-P ADM IN M.R.#: [id number] Admission: 12/21/20 Attend Phys: Candice Romo Discharge: Date of : 54 Report #: [id number] need to consider something like Coumadin or another agent that can be dose adjusted. We might consider Lovenox. If she does not have heparin-induced thrombocytopenia, we could follow anti-Xa. For now, we will serially watch the platelet counts and watch for bleeding. 2. Anemia. At , the patient had labs more consistent with iron deficiency. I think the labs here are probably abnormal related to acute events. We will arrange for IV iron. We will at some point need to consider the endoscopies as mentioned above. 3. Gastroesophageal reflux disease. The patient's symptoms are improved with use of Tums at home and maybe occur a little bit worse after eating half an hour afterwards. We will add Carafate to her Pepcid 10 b.i.d. ____ renal function, it may be best not to increase the Pepcid though I would defer to pharmacy and GI. 4. For as mentioned above arterial clot with peripheral arterial disease times multiple times, will be on argatroban, we will discuss that. 5. Chronic obstructive pulmonary disease and idiopathic pulmonary fibrosis. Continues inhalers per others. 6. Chronic congestive heart failure with left ventricular ejection fraction of 55% per others. 7. Gastroesophageal reflux disease as mentioned above, on Pepcid. We will add Carafate. Consider upper and possible lower endoscopies to look for source of iron loss in the future, so this may be difficult with the multiple medications the patient seems to need to be on for both her peripheral arterial and her coronary artery disease. 8. Hypertension, meds per others. 9. Hyperlipidemia, meds per others. 10. Atrial fibrillation, rate controlled, meds per others. 11. Depression, meds per others. We will follow with you. <ELECTRONICALLY SIGNED> By: Moises Parker MD 12/24/20 [id number] Moises Parker MD /nt
--- NOTE | 2020-12-24 15:16 | NUR ---
chart review. she starting iv iron, she able to make her needs know. she is on o2 2l/nc. going to start warfarin. no anticipate dc through weekend. possible will be ready for dc on sunday. dcp home. will cont following as needed for dc needs.
--- NOTE | 2020-12-24 18:32 | NUR ---
AMIOADRONE GTT INITIATED THIS AM. PATIENT UP TO CHAIR.
--- NOTE | 2020-12-24 22:21 | NUR ---
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
[2020-12-25] VITALS (19 sets, daily range): BP systolic 116–150; BP diastolic 46–95
[2020-12-25 04:18] LABS: APTT 58.7 Seconds (24.5-32.8); INR 1.8; PROTIME 18.5 Seconds (9.3-11.4)
[2020-12-25 08:16] LABS: HEMATOCRIT 26.6 % (37.0-47.0); HEMOGLOBIN 8.5 gm/dL (12.0-15.0); MCH 27.3 pg (26.0-34.0); MCV 85.2 fL (80.0-100.0); RBC 3.12 mil/uL (4.20-5.00); RDW 18.4 % (10.5-14.5); WBC 10.3 thou/uL (4.0-11.0)
[2020-12-25 08:20] LABS: CALCIUM 8.2 mg/dL (8.5-10.1); CREATININE 1.5 mg/dL (0.6-1.0); POTASSIUM 3.3 mmol/L (3.5-5.1)
--- NOTE | 2020-12-25 10:14 | NUR ---
DR. DINERO ROUNDED ON PT AND STATED PT WILL NEED TO REMAIN IN ICU WHILE ON AGATRABAN. PT STARTED ON COUMADIN YESTERDAY. CARDIOLOGY AND HEMATOLOGY WILL COORDINATE HOW LONG PT WILL NEED TO BE ON BOTH AGATRABAN AND COUMADIN.
--- NOTE | 2020-12-25 18:32 | NUR ---
PT REMAINS THIS SHIFT ON 2L NC WHICH IS HER BASELINE AT HOME, O2 SATS 94-97%. PT IS COUGHING THICK AMOUNTS OF BLOOD TINGED SPUTUM WHICH SHE STATES IS ALSO HER BASELINE DUE TO HER IDOPATHIC PULMONARY FIBROSIS. PT IS TRANSFERRING TO BEDSIDE COMMODE WITH ONE ASSIST DUE TO CORDS AND LINES BUT IS STEADY ON FEET. R GROIN REMAINS SOFT WITH NO HEMATOMA PRESENT, NO DRAINAGE AT SITE AFTER DRESSING WAS CHANGED THIS AM.
[2020-12-26] VITALS (10 sets, daily range): BP systolic 121–151; BP diastolic 61–82
[2020-12-26 08:27] LABS: APTT 65.3 Seconds (24.5-32.8); INR 4.1; PROTIME 42.2 Seconds (9.3-11.4)
[2020-12-26 10:15] LABS: ALBUMIN 2.9 g/dL (3.4-5.0); CALCIUM 8.5 mg/dL (8.5-10.1); CREATININE 1.3 mg/dL (0.6-1.0); PHOSPHORUS 3.5 mg/dL (2.6-4.7); POTASSIUM 3.4 mmol/L (3.5-5.1)
[2020-12-26 10:50] LABS: HEMATOCRIT 28.4 % (37.0-47.0); MCHC 31.7 g/dL (28.0-37.0); MCV 85.1 fL (80.0-100.0); RBC 3.34 mil/uL (4.20-5.00); RDW 18.4 % (10.5-14.5); WBC 11.5 thou/uL (4.0-11.0)
[2020-12-26 20:48] LABS: INR 3.9; PROTIME 40.5 Seconds (9.3-11.4)
[2020-12-27 03:30] LABS: HEMATOCRIT 28.1 % (37.0-47.0); HEMOGLOBIN 9.1 gm/dL (12.0-15.0); MCH 27.7 pg (26.0-34.0); MCHC 32.4 g/dL (28.0-37.0); MCV 85.3 fL (80.0-100.0); RBC 3.29 mil/uL (4.20-5.00); RDW 18.2 % (10.5-14.5)
[2020-12-27 03:41] LABS: CALCIUM 8.4 mg/dL (8.5-10.1); CREATININE 1.2 mg/dL (0.6-1.0)
[2020-12-27 03:42] LABS: PROTIME 41.3 Seconds (9.3-11.4)
[2020-12-27 08:33] VITALS: BP 150/64
--- NOTE | 2020-12-27 13:15 | NUR ---
cm consulted for lovenox pricing. cm checked with outpt [facility]. with pt insurance for 60mg lovenox bid (10, completed on 12/31/20), will be about $ 16.66. cm passed on to bedside nurse to pass on to . possible will be ready for dc by sunday.
[2020-12-27 13:22] VITALS: BP 113/60
--- NOTE | 2020-12-27 16:14 | NUR ---
ALERT AND ORIENTED, VERY PLEASANT. VITALS STABLE AND DENIES PAIN. TOLERATING DIET AND UP WITH STANDBY ASSIST TO USE BATHROOM. PATIENT WAITING FOR CC/TELE BED TO BECOME AVAILABLE. PT/OT JERROD AND TX.
[2020-12-27 17:21] VITALS: BP 137/67
[2020-12-27 20:00] VITALS: BP 142/100
[2020-12-27 21:03] VITALS: BP 142/100
[2020-12-28 02:59] VITALS: BP 133/69
[2020-12-28 05:16] LABS: HEMATOCRIT 30.6 % (37.0-47.0); HEMOGLOBIN 9.9 gm/dL (12.0-15.0); MCHC 32.4 g/dL (28.0-37.0); MCV 86.3 fL (80.0-100.0); RBC 3.55 mil/uL (4.20-5.00); RDW 18.2 % (10.5-14.5); WBC 10.7 thou/uL (4.0-11.0)
[2020-12-28 05:22] LABS: PROTIME 52.1 Seconds (9.3-11.4)
[2020-12-28 05:23] LABS: CALCIUM 8.5 mg/dL (8.5-10.1); CREATININE 1.1 mg/dL (0.6-1.0); POTASSIUM 3.3 mmol/L (3.5-5.1)
[2020-12-28 05:34] LABS: INR 5.1
[2020-12-28 08:30] VITALS: BP 133/70
[2020-12-28] MEDS ORDERED: METOPROLOL SUCC50 MG PO ×2 (09:36)
[2020-12-28] MEDS ORDERED: ENOXAPARIN60 MG/0.1 SUBQ ×2 (09:36)
[2020-12-28] MEDS ORDERED: PACERONE 200 M200 M1 PO ×2 (09:36)
[2020-12-28 12:45] VITALS: BP 128/72
--- NOTE | 2020-12-28 13:00 | NUR ---
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 BAR DOHERTY IN.--VW 1230- IN TO SEE. PLAN FOR DISCH PER PT-NO ORDERS YET.--VW
[2020-12-28 15:47] VITALS: BP 128/72
== END 2020-12-28 16:30 | disposition home or self-care (01) | DRG 270 ==
LOC: ER 00:05 → ICU 01:49 → EROBS 01:49 → 2N 01:49 → EROBS 01:50 → 2N 02:25 → ICU 14:00
PROVIDERS: Emergency Medicine; Hospitalist; Internal Medicine; Internal Medicine Hematology & Oncology; Nuclear Medicine Nuclear Cardiology; Nurse Practitioner; Nurse Practitioner Adult Health; ADMIT Hospitalist; ATTEND Hospitalist
PROC: 027034Z Dilation of Coronary Artery, One Artery with Drug-eluting Intraluminal Device, Percutaneous Approach (ICD-10-PCS; principal; 2020-12-21)
PROC: 3E05317 Introduction of Other Thrombolytic into Peripheral Artery, Percutaneous Approach (ICD-10-PCS; principal; 2020-12-21)
PROC: B213YZZ Fluoroscopy of Multiple Coronary Artery Bypass Grafts using Other Contrast (ICD-10-PCS; 2020-12-21)
PROC: 4A023N7 Measurement of Cardiac Sampling and Pressure, Left Heart, Percutaneous Approach (ICD-10-PCS; 2020-12-21)
PROC: B4181ZZ Fluoroscopy of Bilateral Renal Arteries using Low Osmolar Contrast (ICD-10-PCS; 2020-12-21)
PROC: B215YZZ Fluoroscopy of Left Heart using Other Contrast (ICD-10-PCS; 2020-12-21)
PROC: B211YZZ Fluoroscopy of Multiple Coronary Arteries using Other Contrast (ICD-10-PCS; 2020-12-21)
PROC: 3E05317 Introduction of Other Thrombolytic into Peripheral Artery, Percutaneous Approach (ICD-10-PCS; 2020-12-21)
PROC: B41D1ZZ Fluoroscopy of Aorta and Bilateral Lower Extremity Arteries using Low Osmolar Contrast (ICD-10-PCS; 2020-12-21)
PROC: B218YZZ Fluoroscopy of Left Internal Mammary Bypass Graft using Other Contrast (ICD-10-PCS; 2020-12-21)
PROC: 047M3ZZ Dilation of Right Popliteal Artery, Percutaneous Approach (ICD-10-PCS; 2020-12-22)
PROC: 04CL3ZZ Extirpation of Matter from Left Femoral Artery, Percutaneous Approach (ICD-10-PCS; 2020-12-22)
PROC: 30233R1 Transfusion of Nonautologous Platelets into Peripheral Vein, Percutaneous Approach (ICD-10-PCS; 2020-12-22)
PROC: 30233N1 Transfusion of Nonautologous Red Blood Cells into Peripheral Vein, Percutaneous Approach (ICD-10-PCS; 2020-12-22)
PROC: 04CN3ZZ Extirpation of Matter from Left Popliteal Artery, Percutaneous Approach (ICD-10-PCS; 2020-12-22)
DX: T82.856A Stenosis of peripheral vascular stent, initial encounter (principal); N17.0 Acute kidney failure with tubular necrosis; D68.59 Other primary thrombophilia; I77.89 Other specified disorders of arteries and arterioles; D64.9 Anemia, unspecified; I50.9 Heart failure, unspecified; I73.9 Peripheral vascular disease, unspecified; K21.9 Gastro-esophageal reflux disease without esophagitis; M10.9 Gout, unspecified; D69.6 Thrombocytopenia, unspecified; I25.10 Atherosclerotic heart disease of native coronary artery without angina pectoris; I11.0 Hypertensive heart disease with heart failure; F32.9 Major depressive disorder, single episode, unspecified; E78.00 Pure hypercholesterolemia, unspecified; E78.5 Hyperlipidemia, unspecified; E87.6 Hypokalemia; Y83.8 Other surgical procedures as the cause of abnormal reaction of the patient, or of later complication, without mention of misadventure at the time of the procedure; Z20.822 Contact with and (suspected) exposure to COVID-19; Z90.710 Acquired absence of both cervix and uterus; Z95.1 Presence of aortocoronary bypass graft; Z95.5 Presence of coronary angioplasty implant and graft; Z79.899 Other long term (current) drug therapy; Z79.01 Long term (current) use of anticoagulants; Z88.2 Allergy status to sulfonamides; Z88.8 Allergy status to other drugs, medicaments and biological substances; Z98.49 Cataract extraction status, unspecified eye; Z87.891 Personal history of nicotine dependence; Y92.89 Other specified places as the place of occurrence of the external cause; I48.0 Paroxysmal atrial fibrillation
CPT/HCPCS: 10078; 85076

== ENCOUNTER → 2020-12-30 | Outpatient (CLI) | payer OTHER ==
[~2020-12-30] MED LIST changes: +ENOXAPARIN60 MG/0.1 SUBQ; +METOPROLOL SUCC50 MG PO; +PACERONE 200 M200 M1 PO; +REPATHA SY140 MG/1 M SUBQ; +VITAMIN D310 MC1 PO
== END ==
LOC: SJCVC 09:32
PROVIDERS: ATTEND Internal Medicine Cardiovascular Disease
DX: Z51.81 Encounter for therapeutic drug level monitoring (principal); D64.9 Anemia, unspecified; E78.00 Pure hypercholesterolemia, unspecified; I25.10 Atherosclerotic heart disease of native coronary artery without angina pectoris; J44.9 Chronic obstructive pulmonary disease, unspecified; K21.9 Gastro-esophageal reflux disease without esophagitis; I10 Essential (primary) hypertension; I73.9 Peripheral vascular disease, unspecified; Z95.1 Presence of aortocoronary bypass graft; Z98.890 Other specified postprocedural states; Z79.01 Long term (current) use of anticoagulants; Z79.82 Long term (current) use of aspirin; Z79.899 Other long term (current) drug therapy; Z87.891 Personal history of nicotine dependence

== ENCOUNTER → 2021-01-03 | Outpatient (CLI) | payer OTHER | LOC: SJCVC 10:00 | PROVIDERS: ATTEND Nuclear Medicine Nuclear Cardiology | DX: Z51.81 Encounter for therapeutic drug level monitoring (principal); K21.9 Gastro-esophageal reflux disease without esophagitis; J44.9 Chronic obstructive pulmonary disease, unspecified; I10 Essential (primary) hypertension; I73.9 Peripheral vascular disease, unspecified; I25.10 Atherosclerotic heart disease of native coronary artery without angina pectoris; E78.00 Pure hypercholesterolemia, unspecified; Z95.1 Presence of aortocoronary bypass graft; Z98.890 Other specified postprocedural states; Z79.82 Long term (current) use of aspirin; Z79.01 Long term (current) use of anticoagulants; Z79.899 Other long term (current) drug therapy; Z87.891 Personal history of nicotine dependence ==

== ENCOUNTER → 2021-01-06 | Outpatient (CLI) | payer OTHER | LOC: SJCVC 10:15 | PROVIDERS: ATTEND Internal Medicine Cardiovascular Disease | DX: Z51.81 Encounter for therapeutic drug level monitoring (principal); Z79.01 Long term (current) use of anticoagulants; Z79.82 Long term (current) use of aspirin; Z79.899 Other long term (current) drug therapy; Z88.2 Allergy status to sulfonamides; Z88.8 Allergy status to other drugs, medicaments and biological substances; Z87.891 Personal history of nicotine dependence; Z90.710 Acquired absence of both cervix and uterus; Z90.89 Acquired absence of other organs; Z95.1 Presence of aortocoronary bypass graft ==

== ENCOUNTER → 2021-01-10 | Outpatient (CLI) | payer OTHER | LOC: SJCVC 10:22 | PROVIDERS: ATTEND Internal Medicine Cardiovascular Disease | DX: Z51.81 Encounter for therapeutic drug level monitoring (principal); K21.9 Gastro-esophageal reflux disease without esophagitis; J44.9 Chronic obstructive pulmonary disease, unspecified; J84.112 Idiopathic pulmonary fibrosis; J43.8 Other emphysema; I25.10 Atherosclerotic heart disease of native coronary artery without angina pectoris; I10 Essential (primary) hypertension; I73.9 Peripheral vascular disease, unspecified; E78.00 Pure hypercholesterolemia, unspecified; F32.9 Major depressive disorder, single episode, unspecified; Z86.73 Personal history of transient ischemic attack (TIA), and cerebral infarction without residual deficits; Z95.1 Presence of aortocoronary bypass graft; Z79.01 Long term (current) use of anticoagulants ==

== ENCOUNTER → 2021-01-18 | Outpatient (CLI) | payer OTHER | LOC: SJCVCIMAG 07:48 → SJCVC 07:48 | PROVIDERS: ATTEND Internal Medicine Cardiovascular Disease | DX: I70.202 Unspecified atherosclerosis of native arteries of extremities, left leg (principal); I25.10 Atherosclerotic heart disease of native coronary artery without angina pectoris; I48.0 Paroxysmal atrial fibrillation; I77.9 Disorder of arteries and arterioles, unspecified; I10 Essential (primary) hypertension; E78.00 Pure hypercholesterolemia, unspecified; D64.9 Anemia, unspecified; J84.112 Idiopathic pulmonary fibrosis; J44.9 Chronic obstructive pulmonary disease, unspecified; K21.9 Gastro-esophageal reflux disease without esophagitis; K55.1 Chronic vascular disorders of intestine; Z95.1 Presence of aortocoronary bypass graft; Z90.710 Acquired absence of both cervix and uterus; Z98.890 Other specified postprocedural states; Z88.8 Allergy status to other drugs, medicaments and biological substances; Z79.01 Long term (current) use of anticoagulants; Z79.899 Other long term (current) drug therapy; Z87.891 Personal history of nicotine dependence; Z82.49 Family history of ischemic heart disease and other diseases of the circulatory system ==

== ENCOUNTER → 2021-01-25 | Outpatient (CLI) | payer OTHER | LOC: SJCVC 10:17 | PROVIDERS: ATTEND Internal Medicine Cardiovascular Disease | DX: Z51.81 Encounter for therapeutic drug level monitoring (principal); Z79.01 Long term (current) use of anticoagulants; Z79.899 Other long term (current) drug therapy; Z88.2 Allergy status to sulfonamides; Z88.8 Allergy status to other drugs, medicaments and biological substances; Z87.891 Personal history of nicotine dependence ==

== ENCOUNTER → 2021-02-08 | Outpatient (CLI) | payer OTHER | LOC: SJCVC 11:08 | PROVIDERS: ATTEND Internal Medicine Cardiovascular Disease | DX: Z51.81 Encounter for therapeutic drug level monitoring (principal); K21.9 Gastro-esophageal reflux disease without esophagitis; J44.9 Chronic obstructive pulmonary disease, unspecified; J01.00 Acute maxillary sinusitis, unspecified; J98.2 Interstitial emphysema; I10 Essential (primary) hypertension; I27.20 Pulmonary hypertension, unspecified; K55.1 Chronic vascular disorders of intestine; Z98.890 Other specified postprocedural states; Z95.1 Presence of aortocoronary bypass graft; Z79.01 Long term (current) use of anticoagulants; Z86.73 Personal history of transient ischemic attack (TIA), and cerebral infarction without residual deficits; Z88.2 Allergy status to sulfonamides; Z88.1 Allergy status to other antibiotic agents; Z88.8 Allergy status to other drugs, medicaments and biological substances ==

== ENCOUNTER → 2021-02-16 | Outpatient (CLI) | payer OTHER | LOC: SJCVC 08:13 | PROVIDERS: ATTEND Internal Medicine Cardiovascular Disease | DX: Z51.81 Encounter for therapeutic drug level monitoring (principal); Z79.01 Long term (current) use of anticoagulants ==

== ENCOUNTER → 2021-03-03 | Outpatient (CLI) | payer OTHER | LOC: SJCVC 10:44 | PROVIDERS: ATTEND Internal Medicine Cardiovascular Disease | DX: Z51.81 Encounter for therapeutic drug level monitoring (principal); I25.10 Atherosclerotic heart disease of native coronary artery without angina pectoris; I10 Essential (primary) hypertension; K21.9 Gastro-esophageal reflux disease without esophagitis; J98.2 Interstitial emphysema; F32.9 Major depressive disorder, single episode, unspecified; I73.9 Peripheral vascular disease, unspecified; E78.00 Pure hypercholesterolemia, unspecified; I27.20 Pulmonary hypertension, unspecified; Z79.01 Long term (current) use of anticoagulants; Z79.899 Other long term (current) drug therapy; Z88.2 Allergy status to sulfonamides; Z88.8 Allergy status to other drugs, medicaments and biological substances; Z95.1 Presence of aortocoronary bypass graft; Z95.5 Presence of coronary angioplasty implant and graft; Z87.891 Personal history of nicotine dependence; Z95.828 Presence of other vascular implants and grafts ==

== ENCOUNTER → 2021-03-31 | Outpatient (CLI) | payer OTHER | LOC: SJCVC 07:55 | PROVIDERS: ATTEND Internal Medicine Cardiovascular Disease | DX: Z51.81 Encounter for therapeutic drug level monitoring (principal); K21.9 Gastro-esophageal reflux disease without esophagitis; K55.1 Chronic vascular disorders of intestine; K44.9 Diaphragmatic hernia without obstruction or gangrene; J43.9 Emphysema, unspecified; I25.10 Atherosclerotic heart disease of native coronary artery without angina pectoris; I10 Essential (primary) hypertension; I27.29 Other secondary pulmonary hypertension; E78.00 Pure hypercholesterolemia, unspecified; Z86.73 Personal history of transient ischemic attack (TIA), and cerebral infarction without residual deficits; Z79.01 Long term (current) use of anticoagulants ==

== ENCOUNTER → 2021-04-14 | Outpatient (CLI) | payer OTHER | LOC: SJCVC 08:14 | PROVIDERS: ATTEND Internal Medicine Cardiovascular Disease | DX: Z51.81 Encounter for therapeutic drug level monitoring (principal); K21.9 Gastro-esophageal reflux disease without esophagitis; J43.9 Emphysema, unspecified; I25.10 Atherosclerotic heart disease of native coronary artery without angina pectoris; I10 Essential (primary) hypertension; E78.00 Pure hypercholesterolemia, unspecified; Z95.1 Presence of aortocoronary bypass graft; Z79.01 Long term (current) use of anticoagulants; Z79.899 Other long term (current) drug therapy; Z86.73 Personal history of transient ischemic attack (TIA), and cerebral infarction without residual deficits ==

== ENCOUNTER → 2021-04-19 | Outpatient (CLI) | payer OTHER | LOC: SJCVC 07:59 | PROVIDERS: ATTEND Internal Medicine Cardiovascular Disease | DX: Z51.81 Encounter for therapeutic drug level monitoring (principal); I25.10 Atherosclerotic heart disease of native coronary artery without angina pectoris; I10 Essential (primary) hypertension; K21.9 Gastro-esophageal reflux disease without esophagitis; J43.8 Other emphysema; F32.9 Major depressive disorder, single episode, unspecified; I27.20 Pulmonary hypertension, unspecified; I73.9 Peripheral vascular disease, unspecified; E78.00 Pure hypercholesterolemia, unspecified; Z79.01 Long term (current) use of anticoagulants; Z79.899 Other long term (current) drug therapy; Z88.2 Allergy status to sulfonamides; Z88.8 Allergy status to other drugs, medicaments and biological substances; Z95.1 Presence of aortocoronary bypass graft; Z95.828 Presence of other vascular implants and grafts; Z87.891 Personal history of nicotine dependence ==

== ENCOUNTER → 2021-04-21 | Outpatient (CLI) | payer OTHER | LOC: SJCVC 08:00 | PROVIDERS: ATTEND Internal Medicine Cardiovascular Disease | DX: Z51.81 Encounter for therapeutic drug level monitoring (principal); I25.10 Atherosclerotic heart disease of native coronary artery without angina pectoris; I10 Essential (primary) hypertension; K21.9 Gastro-esophageal reflux disease without esophagitis; J84.112 Idiopathic pulmonary fibrosis; J43.9 Emphysema, unspecified; F32.9 Major depressive disorder, single episode, unspecified; I73.9 Peripheral vascular disease, unspecified; E78.00 Pure hypercholesterolemia, unspecified; I27.20 Pulmonary hypertension, unspecified; Z95.1 Presence of aortocoronary bypass graft; Z79.01 Long term (current) use of anticoagulants; Z79.899 Other long term (current) drug therapy; Z88.2 Allergy status to sulfonamides; Z88.8 Allergy status to other drugs, medicaments and biological substances; Z95.818 Presence of other cardiac implants and grafts; Z87.891 Personal history of nicotine dependence ==

== ENCOUNTER → 2021-04-25 | Outpatient (CLI) | payer OTHER | LOC: SJCVC 14:29 | PROVIDERS: ATTEND Internal Medicine Cardiovascular Disease | DX: Z51.81 Encounter for therapeutic drug level monitoring (principal); Z79.01 Long term (current) use of anticoagulants ==

== ENCOUNTER → 2021-05-06 | Outpatient (CLI) | payer OTHER | LOC: SJCVC 15:39 | PROVIDERS: ATTEND Internal Medicine Cardiovascular Disease | DX: Z51.81 Encounter for therapeutic drug level monitoring (principal); K21.9 Gastro-esophageal reflux disease without esophagitis; K55.1 Chronic vascular disorders of intestine; J44.9 Chronic obstructive pulmonary disease, unspecified; J84.112 Idiopathic pulmonary fibrosis; I25.10 Atherosclerotic heart disease of native coronary artery without angina pectoris; I10 Essential (primary) hypertension; I27.29 Other secondary pulmonary hypertension; Z86.73 Personal history of transient ischemic attack (TIA), and cerebral infarction without residual deficits; Z95.1 Presence of aortocoronary bypass graft; Z79.01 Long term (current) use of anticoagulants ==

== ENCOUNTER → 2021-05-17 | Outpatient (CLI) | payer OTHER | LOC: SJCVCIMAG 11:02 | PROVIDERS: ATTEND Internal Medicine Cardiovascular Disease | DX: I70.202 Unspecified atherosclerosis of native arteries of extremities, left leg (principal); I10 Essential (primary) hypertension; E78.00 Pure hypercholesterolemia, unspecified; I25.10 Atherosclerotic heart disease of native coronary artery without angina pectoris; K21.9 Gastro-esophageal reflux disease without esophagitis; I77.9 Disorder of arteries and arterioles, unspecified; K55.1 Chronic vascular disorders of intestine; J44.9 Chronic obstructive pulmonary disease, unspecified; Z98.890 Other specified postprocedural states; Z95.1 Presence of aortocoronary bypass graft; Z90.710 Acquired absence of both cervix and uterus; Z88.2 Allergy status to sulfonamides; Z88.8 Allergy status to other drugs, medicaments and biological substances; Z88.1 Allergy status to other antibiotic agents; Z95.820 Peripheral vascular angioplasty status with implants and grafts; Z79.01 Long term (current) use of anticoagulants; Z79.899 Other long term (current) drug therapy; Z87.891 Personal history of nicotine dependence; Z82.49 Family history of ischemic heart disease and other diseases of the circulatory system ==

== ENCOUNTER → 2021-05-31 | Outpatient (CLI) | payer OTHER | LOC: SJCVC 15:33 | PROVIDERS: ATTEND Internal Medicine Cardiovascular Disease | DX: Z51.81 Encounter for therapeutic drug level monitoring (principal); K21.9 Gastro-esophageal reflux disease without esophagitis; J98.2 Interstitial emphysema; J84.112 Idiopathic pulmonary fibrosis; I25.10 Atherosclerotic heart disease of native coronary artery without angina pectoris; I27.29 Other secondary pulmonary hypertension; R06.09 Other forms of dyspnea; E78.00 Pure hypercholesterolemia, unspecified; F32.9 Major depressive disorder, single episode, unspecified; Z86.73 Personal history of transient ischemic attack (TIA), and cerebral infarction without residual deficits; Z95.1 Presence of aortocoronary bypass graft; Z79.01 Long term (current) use of anticoagulants ==

== ENCOUNTER → 2021-06-07 | Outpatient (CLI) | payer OTHER | LOC: SJCVC 16:08 | PROVIDERS: ATTEND Internal Medicine Cardiovascular Disease | DX: Z51.81 Encounter for therapeutic drug level monitoring (principal); J44.9 Chronic obstructive pulmonary disease, unspecified; I25.10 Atherosclerotic heart disease of native coronary artery without angina pectoris; I10 Essential (primary) hypertension; K21.9 Gastro-esophageal reflux disease without esophagitis; I73.9 Peripheral vascular disease, unspecified; E78.00 Pure hypercholesterolemia, unspecified; Z79.01 Long term (current) use of anticoagulants; Z79.899 Other long term (current) drug therapy; Z88.2 Allergy status to sulfonamides; Z88.8 Allergy status to other drugs, medicaments and biological substances; Z95.1 Presence of aortocoronary bypass graft; Z87.891 Personal history of nicotine dependence ==

== ENCOUNTER → 2021-06-21 | Outpatient (CLI) | payer OTHER | LOC: SJCVC 14:35 | PROVIDERS: ATTEND Internal Medicine Cardiovascular Disease | DX: Z51.81 Encounter for therapeutic drug level monitoring (principal); K21.9 Gastro-esophageal reflux disease without esophagitis; J43.8 Other emphysema; I25.10 Atherosclerotic heart disease of native coronary artery without angina pectoris; I73.9 Peripheral vascular disease, unspecified; I10 Essential (primary) hypertension; Z98.890 Other specified postprocedural states; Z95.1 Presence of aortocoronary bypass graft; Z79.01 Long term (current) use of anticoagulants; Z79.899 Other long term (current) drug therapy ==

== ENCOUNTER → 2021-07-05 | Outpatient (CLI) | payer OTHER | LOC: SJCVC 13:51 | PROVIDERS: ATTEND Internal Medicine Cardiovascular Disease | DX: Z51.81 Encounter for therapeutic drug level monitoring (principal); K21.9 Gastro-esophageal reflux disease without esophagitis; J44.9 Chronic obstructive pulmonary disease, unspecified; I25.10 Atherosclerotic heart disease of native coronary artery without angina pectoris; I10 Essential (primary) hypertension; I73.9 Peripheral vascular disease, unspecified; E78.00 Pure hypercholesterolemia, unspecified; Z95.1 Presence of aortocoronary bypass graft; Z79.01 Long term (current) use of anticoagulants; Z79.899 Other long term (current) drug therapy ==

== ENCOUNTER → 2021-08-02 | Outpatient (CLI) | payer OTHER | LOC: SJCVC 15:57 | PROVIDERS: ATTEND Internal Medicine Cardiovascular Disease | DX: Z51.81 Encounter for therapeutic drug level monitoring (principal); I25.10 Atherosclerotic heart disease of native coronary artery without angina pectoris; K21.9 Gastro-esophageal reflux disease without esophagitis; J44.9 Chronic obstructive pulmonary disease, unspecified; F32.9 Major depressive disorder, single episode, unspecified; Z79.01 Long term (current) use of anticoagulants; Z79.899 Other long term (current) drug therapy; Z87.891 Personal history of nicotine dependence; Z88.2 Allergy status to sulfonamides; Z88.8 Allergy status to other drugs, medicaments and biological substances ==

== ENCOUNTER → 2021-08-30 | Outpatient (CLI) | payer OTHER | LOC: SJCVC 11:15 | PROVIDERS: ATTEND Internal Medicine Cardiovascular Disease | DX: Z51.81 Encounter for therapeutic drug level monitoring (principal); Z79.01 Long term (current) use of anticoagulants ==

== ENCOUNTER → 2021-09-06 | Outpatient (CLI) | payer OTHER | LOC: SJCVC 10:19 | PROVIDERS: ATTEND Internal Medicine Cardiovascular Disease | DX: Z51.81 Encounter for therapeutic drug level monitoring (principal); Z79.01 Long term (current) use of anticoagulants ==